=== PATIENT | male | born 1960 | race Caucasian/White ===

== ENCOUNTER 2016-07-11 13:13 | Emergency (ER) | payer OTHER ==
[~2016-07-11] VITALS: Ht 188 cm; Wt 108.9 kg
[2016-07-11 13:33] VITALS: BP 186/108
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
[2016-07-11] MEDS ORDERED: FLUORESCEIN OPTH STRIP 1 MG OP ONE (14:55)
[2016-07-11] MEDS ORDERED: TETRACAINE 0.5% OPTH SOL 2 ML BTL OP ONE (14:55)
--- NOTE | 2016-07-11 15:45 | NUR ---
VSS. DR ZAHRAA WEBBTING PT AT BEDSIDE. Addendum: 07/11/16 at 1605 by BILL CORRECTION: Crissy EMERY
[2016-07-11 16:39] VITALS: BP 127/73
--- NOTE | 2016-07-11 16:41 | NUR ---
PATIENT REQUESTED P.A. EMERY TO DISPOSE CONTACT LENS. Patient discharged with v/s stable. Written and verbal after care instructions given and explained. Patient alert, oriented and verbalized understanding of instructions. Ambulatory with steady gait. All questions addressed prior to discharge. ID band removed. Patient advised to follow up with PMD. Rx of CIPRO, GENTAMICIN OP given. Patient educated on indication of medication including possible reaction and side effects. Opportunity to ask questions provided and answered.
== END 2016-07-11 16:41 | disposition home or self-care (01) ==
LOC: MED 13:13
DX: H10.9 Unspecified conjunctivitis (principal); R03.0 Elevated blood-pressure reading, without diagnosis of hypertension